=== PATIENT | female | born 1990 | race Caucasian/White ===

== ENCOUNTER 2025-02-25 19:48 | Inpatient (IN) | payer MEDICAID ==
[~2025-02-25] VITALS: Ht 157.5 cm; Wt 110.7 kg
--- NOTE | 2025-02-25 19:58 | ELECTROCARDIOGRAPH REPORT ---
[facility] Test Date: 2025-02-25 Test Time: 19:54:42 Pat Name: MATHEW FUNES Department: EMERGENCY ROOM Room: Gender: F Spa Assistant Manager: : 1990 Requested By: JUSTIN WINSTON Order Number: [id number] Reading MD: Measurements Intervals Colver Rate: 77 P: 68 SD: 166 QRS: 55 QRSD: 95 T: 12 QT: 368 QTc: 417 Interpretive Statements Sinus rhythm Borderline low voltage, extremity leads Please click the below link to view image of tracing.
--- NOTE | 2025-02-25 19:58 | Physician Documentation ---
History of Present Illness ~ Chief Complaint: Chest Pain Stated Complaint: NSTEMI Time Seen by MD: 19:50 HPI Patient presents to the emergency room for evaluation of chest pain sent from [facility]. Patient was found to have elevated troponins in his diagnosed with an NSTEMI and sent here with heparin. Nitroglycerin did resolve her symptoms and she currently has no chest pain. She presented to their emergency room with right-sided arm pain and pain into her back left chest and into her jaw. EKGs reassuring at that time. She denies any past medical history but does smoke Medication Reconciliation Allergies: Coded Allergies: No Known Allergies (Unverified , 02/25/25) Review of Systems ROS All review of systems negative except as per HPI Physical Exam Vital Signs: Heart Rate: 95, Respiratory Rate: 14, Pulse Oximetry: 98, Weight: 108.300 General Appearance General: Patient is awake, alert, oriented x4 in no acute distress and well appearing.~ Head: Normocephalic and atraumatic. Eyes: Conjunctival normal. EOMI. PERRL. ENT: Mucous membranes moist. Neck: Supple, trachea is midline. Chest: Clear to auscultation bilaterally without rales, rhonchi, or wheezes. There is no accessory muscle use or retractions. Cardiac: RRR without murmurs, gallops, or rubs. Abd: Soft, nondistended, nontender, with normoactive bowel sounds. No guarding, rebound, or rigidity. Extremities: Normal strength. Normal range of motion. No deformities or edema. No calf tenderness to palpation Progress Results/Orders Results/Orders Orders - SOLO CRUZ MD Heparin 25,000 Unit/250ml Bag (Heparin 2 (02/25/25 19:55) Heparin 10,000 Unit/Ml 1ml (Heparin 10,0 (02/25/25 19:55) Cbc/Diff (02/26/25 03:00) Cbc/Diff (02/27/25 03:00) Cbc/Diff (02/28/25 03:00) Cbc/Diff (03/01/25 03:00) Cbc/Diff (03/02/25 03:00) Chest,Single View (02/25/25 19:54) Saline Lock (02/25/25 19:54) Monitor (02/25/25 19:54) Oxygen (02/25/25 19:54) Hs Troponin I W Calculations (02/25/25 22:54) Page Hospitalist (02/25/25 19:58) Fill Out Med Reconciliation (02/25/25 19:58) PTT (02/26/25 02:21) PTT (02/26/25 03:00) Completed Orders - SOLO CRUZ MD Pt Inr (02/25/25 19:54) PTT (02/25/25 19:54) Cbc/Diff (02/25/25 19:54) MG (02/25/25 19:54) Electrocardiogram (02/25/25 19:54) PBNP (02/25/25 19:54) Chest,Single View (02/25/25 19:54) BMP (02/25/25 19:54) Hs Troponin I W Calculations (02/25/25 19:54) Hgb A1c (02/25/25 20:01) Message To Nursing (02/25/25 21:50) Medications Received in ER Medications (Trade) Dose Ordered Sig/Lindsay Route PRN Reason Start Time Stop Time Status Last Admin Dose Admin Heparin Sodium/ Dextrose 250 ml @ 12 mls/hr [id number] PRN IV TO MAINTAIN PTT WITHIN RANGE 02/25/25 19:55 02/25/25 20:18 10 MLS/HR (heparin 10,000 unit/ml 1ml inj) bolus for correct... PRN PRN IV per protocol-CARDIAC 02/25/25 19:55 02/25/25 21:03 4,000 UNITS Non-Formulary Medication 1 each ONCE ONCE IV 02/25/25 21:50 02/25/25 21:53 DC 02/25/25 22:22 1 EACH Vital Signs 02/25/25 02/25/25 02/25/25 02/25/25 19:50 20:03 22:31 22:32 Temp 97.9 97.9 97.9 Pulse 95 82 84 Resp 14 16 18 20 B/P (MAP) 121/73 121/73 (89) 121/56 (77) Pulse Ox 98 98 100 Laboratory Tests Test 02/25/25 20:01 02/25/25 22:24 White Blood Count 14.0 H Red Blood Count 5.01 Hemoglobin 14.0 Hematocrit 42.2 Mean Corpuscular Volume 84.1 Mean Corpuscular Hemoglobin 27.9 Mean Corpuscular Hemoglobin Concent 33.2 Red Cell Distribution Width 14.8 H Platelet Count 348 Mean Platelet Volume 7.8 Neutrophils (%) (Auto) 77.0 H Lymphocytes (%) (Auto) 19.8 L Monocytes (%) (Auto) 2.6 Eosinophils (%) (Auto) 0.3 Basophils (%) (Auto) 0.3 Neutrophils # (Auto) 10.8 H Lymphocytes # (Auto) 2.8 Monocytes # (Auto) 0.4 Eosinophils # (Auto) 0.0 Basophils # (Auto) 0.0 CBC Comment Prothrombin Time 10.3 INR International Normalized Ratio 1.0 Activated Partial Thromboplast Time 38 H Coagulation Comments Sodium Level 142 Potassium Level 4.3 Chloride Level 108 H Carbon Dioxide Level 25.6 Anion Gap 8 Blood Urea Nitrogen 12 Creatinine 0.67 Estimated GFR/1.73 m2 > 90 BUN/Creatinine Ratio 17.9 Glucose Level 103 Hemoglobin A1c 5.6 Calcium Level 8.6 Magnesium Level 2.1 Troponin I High Sensitivity 56136 *H Troponin I High Sens Percent Delta Troponin I Hi Sens Absolute Change Pro-B-Type Natriuretic Peptide 48 Albumin 3.6 Chemistry Comments EKG/XRAY/CT/US/VASC/MRI EKG : Additional Comment EKG interpreted by myself shows time of 1953, rate 77, sinus rhythm, normal axis, no ST changes Medical Decision Making Findings Patient presents to the emergency room as a transfer for NSTEMI as per HPI. We will continue heparin. Patient is currently chest pain-free with a reassuring EKG. We will admit for further investigation and cardiology consult. Differential Dx:Considerations: Include: angina, aortic dissection, chest wall pain, cholelithiasis, CHF, costochondritis, esophageal reflux/spasm, gastritis, herpes zoster, myocardial infarction, pericarditis, pleuritis, pancreatitis, pneumonia, pneumothorax, pulmonary embolus, other Departure Admitted to Inpatient Unit: yes, to hospitalist Impression: Primary Impression: Non-ST elevation PR (NSTEMI) Condition: Guarded Referrals: NO PRIMARY CARE PROVIDER (PCP) Critical Care Note Total Time (mins): 30 Critical Care Note The very real possibility of a deterioration of this patient's condition required the highest level of my preparedness for sudden, emergent intervention. I provided critical care services, which included medication orders, frequent reevaluations of the patient's condition and response to treatment, ordering and reviewing test results, and discussing the case with various consultants. Excludes time spent performing separately billable procedures. The critical care time associated with the care of the patient was 30 minutes not counting procedures. Signature Scribe Signature: No scribe Attestation: The note accurately reflects work and decisions made by me.Solo Cruz MD 02/25/25 22:36 SOLO CRUZ MD Feb 25, 2025 19:58
[2025-02-25 20:15] LABS: MEAN PLATELET VOLUME 7.8 FL (7.4-10.4); RED CELL DISTRIBUTION WIDTH 14.8 % (11.5-14.5)
[2025-02-25] MEDS: heparin 10,000 units/1 ML INJ IV PRN (20:18)
[2025-02-25] MEDS: heparin 25,000 UNIT/250ml bag 250 ML IV PRN (20:18)
[2025-02-25 20:22] LABS: APTT 38 SECONDS (22-32); INR 1.0 INR
--- NOTE | 2025-02-25 20:26 | RADIOLOGY REPORT ---
CHEST RADIOGRAPH Indication: CP Technique: Single frontal view of the chest was obtained Comparison: None FINDINGS: Lines and Tubes: None Lungs: No focal consolidation. Pleura: No effusion. No pneumothorax. Cardiomediastinal contours: Unremarkable Bones: No acute osseous abnormality. IMPRESSION: No acute cardiopulmonary disease.
[2025-02-25 20:33] LABS: CREATININE 0.67 MG/DL (0.40-0.90); PRO BRAIN NATRIURETIC PEPTIDE 48 PG/ML (0-125); TOTAL CARBON DIOXIDE 25.6 MMOL/L (24-32); eCRCL 94 ML/MIN; eGFR > 90 ML/MIN
[2025-02-25] MEDS ORDERED: potassium Cl 20 mEq SR tablet PO PRN ×2 (21:25)
[2025-02-25] MEDS ORDERED: mag hydrox/Alum hydrox/simeth 30ml oral suspension PO PRN (21:25)
[2025-02-25] MEDS ORDERED: magnesium sulf-water 4G/100mL 100 ML IV PRN (21:25)
[2025-02-25] MEDS ORDERED: ondansetron/PF 4mg/2ml inj IV PRN (21:25)
[2025-02-25] MEDS ORDERED: HYDROcodone/acetaminophen 10/325mg tab PO PRN (21:25)
[2025-02-25] MEDS ORDERED: magnesium hydroxide 30ml (MOM) UD suspension PO PRN (21:25)
[2025-02-25] MEDS ORDERED: magnesium Cl slow-release 64mg tablet PO PRN (21:25)
[2025-02-25] MEDS ORDERED: HYDROcodone/acetaminophen 5mg/325mg tablet PO PRN (21:25)
[2025-02-25] MEDS ORDERED: potassium Cl 40MEQ/1/2NS 520ml 520 ML IV PRN (21:25)
[2025-02-25] MEDS ORDERED: magnesium sulf-water 2g/50mL 50 ML IV PRN (21:25)
--- NOTE | 2025-02-25 21:34 | HISTORY AND PHYSICAL-Residence ---
History & Physical Providers to Resident Creating Document: ANALY DELAROSA RES ~ History of Present Illness Reason for Admit\Complaint: jaw, arm and back pain History of Present Illness 34-year-old female is a transfer from [facility] . She went to the hospital with chief complaints of pain in her left arm , jaw and back which started this afternoon at around 1:30 p.m. patient was involved in some recreational activities when the pain started all of a sudden, sharp, constant,rates it as as 10 on 10 in intensity. She observed for a few minutes, did not find any relief so immediately went to the hospital, where she was given aspirin and nitroglycerin which relieved her pain. Patient was then transferred to [facility] for further evaluation. At the time of examination, patient reported no pain nor shortness of breath. Patient says that this is the 1st time that she is experienced this kind of pain, never had similar symptoms in the past. Patient denies any complaints of chest pain, shortness of breath, palpitations, headache, double vision. Patient has no known history of heart disease. Allergies: Coded Allergies: No Known Allergies (Unverified , 02/25/25) Past Medical History Past Medical History Had a miscarriage in November this year. No other significant past medical history Past Surgical History Surgical History Comment No significant surgical history. Past Social History Social History Comment Patient lives at home. Works in housekeeping. Patient started smoking when she was 16 years old smoked for 4 years 1 pack per week. Was clean for several years in between and again started smoking in November this year 4 cigarettes per day. Started drinking alcohol in 7th grade, on and off until age 24, when she stopped drinking. She again started to drink in 2023 2 bottles of vodka per day, stopped last month. No illicit drug use. Patient independent with activities of daily living ROS ROS Constitutional: Reports: No headache, No chills, fever, malaise Eyes: Reports: No redness, tearing ENT: Reports: no symptoms reported Respiratory: Reports: Reports no cough, shortness of breath, wheezing Cardiovascular: Reports: Reports no chest pain Gastrointestinal: Reports: Reports no nausea , vomiting Genitourinary: Reports: No symptoms reported Female Genitalia: Reports: No symptoms reported Neurological: Reports: No symptoms reported Musculoskeletal: Reports: no symptoms reported Integumentary: Reports: no symptoms reported Allergic/Immunologic: Reports: no symptoms reported Hematologic/Lymphatic: Reports: no symptoms reported Psychiatric: Reports: no symptoms reported Exam Vitals: Vital Signs Date Time Temp Pulse Resp B/P (MAP) Pulse Ox O2 Delivery O2 Flow Rate FiO2 02/25/25 20:03 97.9 82 16 121/73 (89) 98 General: General: Awake and Alert, no acute distress. Moderately obese female HEENT: Conjunctiva pink, Mucus Membranes moist. Resp: Normal breath sounds. Heart: Regular Rate and rhythm, normal S1 and S2 without murmur, rub or gallop. Abdomen: Soft and non tender no organomegaly Extremities: no edema , peripheral pulses well felt BILINGUAL SALES CONSULTANT: Conscious, oriented x4. No cranial nerve deficits. No upper or lower extremity motor or sensory deficits. Psych: Mood and affect appropriate Skin: Warm and Dry. Diagnostic Data Last Recorded Lab Results: 02/25/25200002/25/252000 Diagnostic Data: Laboratory Tests Test 02/25/25 20:01 Prothrombin Time 10.3 SECONDS (9.0-12.0) INR International Normalized Ratio 1.0 INR Activated Partial Thromboplast Time 38 SECONDS (22-32) H Coagulation Comments Advance Care Planning Advanced Care plannin - 30 Minutes (Full code) Additional Plan [id number] female chief complaint of pain in her jaw and left arm and back since this afternoon. Possible NSTEMI PE unlikely wells score 0 heart Score-4 Patient currently not complaining of any pain Vitals stable Increased troponin- 59422 EKG- no ST elevation, depression, no acute changes present Chest x-ray-no acute cardiopulmonary disease CTA chest done at [facility] today-no PE. no aneurysm or dissection, heart not enlarged. No pericardial effusion. Echo ordered. Follow-up Patient currently on heparin drip. Started patient on aspirin 81 mg daily, atorvastatin 40 mg daily. Cardiology consulted, awaiting recommendations. Patient on NPO code Status: full code Line/tube: PIV DVT prophylaxis: Heparin Nutrition: NPO PT: Yes Analy Delarosa PGY-1 Patient seen and case discussed with resident. I agree with the assessment and plan above with no changes. Alexandra Granados MD Critical Care Date of Service: Feb 25, 2025 Billing Provider: ALEXANDRA GRANADOS MD,ANALY, RES Feb 25, 2025:34 ALEXANDRA GRANADOS MD Feb 26, 2025 19:33
[2025-02-25] MEDS: MESSAGE TO NURSING IV ONE (22:22)
[2025-02-25] MEDS ORDERED: regadenoson 0.4mg/5ml syringe IV PRN (22:35)
[2025-02-25] MEDS ORDERED: aminophylline 250mg/10ml inj. IV PRN (22:35)
[2025-02-25] MEDS ORDERED: metoprolol tartrate 1mg/ml inj IV PRN (22:35)
[2025-02-25 23:12] LABS: LEUKOCYTE ESTERASE ,URINE NEGATIVE (Neg); NITRITES, URINE NEGATIVE (Neg); OCCULT BLOOD,URINE NEGATIVE (Neg)
[2025-02-25] MEDS ORDERED: PNV1TABL75 PO (23:12)
[2025-02-25] MEDS ORDERED: VITD400T PO (23:12)
[2025-02-25 23:18] LABS: UA COLLECTION TYPE CLN CATCH MIDSTREAM
[2025-02-25 23:30] VITALS: RESP 18; O2SAT 97
[2025-02-26] VITALS (21 sets, daily range): BP systolic 98–134; BP diastolic 47–84; PULSE 63–90; RESP 13–23; TEMP 96.7–98.7; O2SAT 97–100
[2025-02-26 03:48] LABS: APTT 44 SECONDS (22-32)
[2025-02-26 03:49] LABS: MEAN PLATELET VOLUME 7.6 FL (7.4-10.4); RED CELL DISTRIBUTION WIDTH 14.7 % (11.5-14.5)
[2025-02-26 04:01] LABS: CHOL/HDL RATIO 4.6 (0.00-4.99); CREATININE 0.62 MG/DL (0.40-0.90); LDL CHOLESTEROL 123 MG/DL (50-100); TOTAL CARBON DIOXIDE 25.5 MMOL/L (24-32); eCRCL 89 ML/MIN; eGFR > 90 ML/MIN
[2025-02-26] MEDS: MESSAGE TO NURSING IV ONE ×3 (04:30→12:54)
[2025-02-26] MEDS: docusate sod 100mg capsule PO SCH (07:28)
[2025-02-26] MEDS: aspirin 81mg, enteric-coated 1 TAB TABLET.DR PO SCH (07:28)
[2025-02-26] MEDS ORDERED: LIDOcaine 1% (10mg/ml) 2ml vial ONE (07:42)
[2025-02-26] MEDS ORDERED: midazolam 1 mg/ML 2ml injection ONE (07:42)
[2025-02-26] MEDS ORDERED: fentaNYL/PF 50MCG/1 ML 2ML syringe ONE (07:42)
[2025-02-26] MEDS ORDERED: heparin 1,000unit/ml 10ml vial 10 ML ONE (07:42)
[2025-02-26] MEDS ORDERED: verapamil 2.5 mg/ml inj IV ONE (07:42)
[2025-02-26] MEDS ORDERED: nitroGLYCERIN 500mcg/5mL D5W 5 ML IV ONE (07:43)
[2025-02-26] MEDS: K and/or MAG REPLACEMENT MC SCH (08:00)
[2025-02-26] MEDS ORDERED: heparin, porcine 5000 units/ml vial SQ SCH (08:00)
[2025-02-26] MEDS ORDERED: iohexol 350 MG/ML 50ML vial IV ONE (08:13)
--- NOTE | 2025-02-26 08:35 | CONSULTATION REPORT ---
Cardiac Consultation Report Providers to CC CC: DAMIAN SOUZA MD ~ Progress Note: 34yo woman with tobacco use admitted with CP x 1 day, found to have NSTEMI. Pt reports she had a miscarriage ~ 3 months ago, restarted smoking after that. Was playing some activities/games yesterday during which she started to have pains. She reports left arm pains/numbness associated with jaw pains that radiated to her back. She rested for a little while, the pains improved, but then returned when she tried to resume the games so she went into the ER at [place]. There, had workup revealing a positive troponin, underwent CXR, CTA which were negative and transferred for further care. She denies any recent illnesses, fevers/chills, diarrhea. Subjective Subjective Since, reports LUE/jaw pains have nearly resolved. Denies any SOB, LE edema, syncope, dizziness/LH. Objective Vitals Vital Signs Date Time Temp Pulse Resp B/P (MAP) Pulse Ox O2 Delivery O2 Flow Rate FiO2 02/26/25 07:30 20 Room Air 02/26/25 06:56 97.3 70 99/48 (65) 100 Lab Results: 02/26/25 0337 02/26/25 0250 Objective GENERAL: Awake, alert, NAD CV: Reg rhythm, normal rate. No murmurs LUNGS: CTAB GI: +BS, soft, non-tender EXT: 2+ radial pulses, no edema PSYCH: cooperative Coagulation Studies Laboratory Tests Test 02/25/25 20:01 02/26/25 02:50 Prothrombin Time 10.3 SECONDS (9.0-12.0) INR International Normalized Ratio 1.0 INR Activated Partial Thromboplast Time 44 SECONDS (22-32) H Coagulation Comments Problem\Assessment\Plan Problems/Diagnosis: (1) Non-ST elevation CO (NSTEMI) Assessment & Plan: Patient with exertional LUE/Jaw pains and found to have elevated troponins(~26k). Risk factors of tobacco use. Did have recent miscarriage, ~ 3 months prior. EKG without acute changes. Had extensive discussion with patient regarding possible etiologies and discussed SCAD vs Takatsubo's. She appears euvolemic on exam, no SOB, no EKG changes to suggest takatsubo's. No murmurs appreciated on exam. --Will proceed with [facility] for definitive diagnosis --Pending Echo --Cont ASA 81mg QD --Cont Atorva 40 --Cont BOSTONx JODY SOUZA MD Feb 26, 2025 08:35
--- NOTE | 2025-02-26 09:08 | CARDIAC CATH REPORT ---
Cardiac Cath Report Providers to CC CC: DAMIAN SOUZA MD Procedure Comments: 1. Left Heart Catheterization 2. Selective Coronary Angiography 3. Right Radial Artery Access Brief History/Indications: 34yo woman with tobacco use admitted with CP x 1 day, found to have NSTEMI. Techniques: After informed consent was obtained, the patient was brought to the cardiac catheterization laboratory and prepped and draped in usual sterile fashion for left heart catheterization and other procedures mentioned above. The right wrist was anesthetized with 1% Lidocaine and the right radial artery accessed via the Seldinger technique after which a 6Fr sheath was placed. Through this a TIG was used to engage the left ventricle, the left coronary artery, and the right coronary artery. At the conclusion of the case the sheath was removed and hemostasis obtained with a VascBand. Findings Findings: HEMODYNAMICS: LV: 108/- mmHg LVEDP: 4 mmHg Ao: 102/71, MAP 86 mmHg CORONARY ARTERIES: Rt Dominant LMCA: Luminal Irregularities LAD: Long area of diffuse narrowing of the mid-distal LAD, appears to be SCAD. Dx: Luminal Irregularities LCx: Luminal Irregularities OM1: Luminal Irregularities OM2: Luminal Irregularities RCA: Luminal Irregularities PDA: Luminal Irregularities PL: Luminal Irregularities Results Results: 1. 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 RRA Access, closed with VascBand RECOMMENDATIONS: 1. Recommend uptitration of max-tolerated GDMT 2. Given appearance of SCAD, no hemodynamic compromise, normal LVEDP, resolution of CP and no persistent ST changes, decided not to intervene. 3. Will consider repeat imaging to re-assess at a later time frame JODY SOUZA MD Feb 26, 2025 09:08
[2025-02-26] MEDS: metoprolol succinate 25mg (24-HOUR) SR. Tablet PO SCH (11:49)
--- NOTE | 2025-02-26 14:05 | PROGRESS NOTE ---
Daily Progress Note Providers to CC ~ Antibiotic Timeout Antibiotic Ordered?: No Subjective No acute events overnight. Patient examined at bedside. No new complaints, not in acute distress. Patient denies chest pain, sob, palpitations, abdominal pain, n/v/d. Vss, trops from 26,000 to 22,000. Tele sinus in 60s. Continued on heparin drip. Route [facility] Dr. Wilmer Darby consulted, s/p left heart catheterization with findings of spontaneous coronary artery dissection with recommendation for medical management is there is no hemodynamic compromise and no persistent ST changes. Objective Vital Signs Date Time Temp Pulse Resp B/P (MAP) Pulse Ox O2 Delivery O2 Flow Rate FiO2 02/26/25 11:53 97.4 74 18 117/77 (90) 97 Room Air Result Diagram: 02/26/25 0337 02/26/25 0250 Physical Exam General: A&Ox 3, NAD HEENT: Normocephalic, PERRLA Neck: Supple, trachea midline, no JVD Chest: Clear to auscultation bilaterally Cardiovascular: RRR, S1&S2 GI: Soft and nontender Extremities: No cyanosis/clubbing/or edema CUSTOMER ENGINEER: CN II-XII intact, no focal deficits Musculoskeletal: No paraspinal muscle tenderness, no muscle spasm Skin: Warm and intact Coagulation Studies Laboratory Tests Test 02/25/25 20:01 02/26/25 02:50 02/26/25 11:08 Prothrombin Time 10.3 SECONDS (9.0-12.0) INR International Normalized Ratio 1.0 INR Activated Partial Thromboplast Time 44 SECONDS (22-32) H APTT (Heparin Protocol) 33 SECONDS (45-60) L Coagulation Comments Problem\Assessment\Plan 34-year-old female chief complaint of pain in her jaw and left arm and back since this afternoon. Spontaneous coronary artery dissection NSTEMI PE- ruled out troponin- 13487, 33188, 29007, EKG no ST elevation, depression, CXR no acute cardiopulmonary disease [facility]A chest done at [facility] today-no PE. no aneurysm or dissection, heart not enlarged. No pericardial effusion. 02/26: continued on heparin drip, Dr. Wilmer Darby consulted, scheduled for angiogram, Tele sinus in 60s. s/p left heart catheterization with findings of spontaneous coronary artery dissection with recommendation for medical management is there is no hemodynamic compromise and no persistent ST changes. Optimize GDMT as tolerated, aspirin. Hep drip to be discontinued tonight. TTE hypokinesis of the apex bright. LVEF is 65-70% RVSP 20mmHg. Date of Service: Feb 26, 2025 Billing Provider: JD OSULLIVAN Common Visit Codes: 95425-[id number] INP/OBS CARE(HIGH) JD OSULLIVAN Feb 26, 2025 14:05
--- NOTE | 2025-02-26 19:31 | CARDIOLOGY REPORT ---
APPROVED REPORT EXAM: Comprehensive 2D, Doppler, and color-flow Echocardiogram. Patient Location: 301 Blood Pressure: 113/73 mmHg Heart Rate: 69 bpm Indications NSTEMI Chest Pain Troponin: 96565, 36350, 38067 S/P Angiogram w/o stent LAWYER PROBATE: Jakub Darby MD No Previous ECHO 2D Dimensions LA Diam 3.0 cm IVSd 0.8 (0.7-1.1cm) LVDd 5.0 cm PWd 1.1 (0.7-1.1cm) IVSs 1.5 (0.8-1.2cm) LVDs 2.8 (2.5-4.0cm) PWs 1.5 (0.8-1.2cm) LVOT Diameter 1.87 (1.8-2.4cm) LVEF(%) 74.7 (>50%) Ao Asc Diam. 2.52 cm IVC 15.51 mm FS (%) 43.7 % SV 88.2 ml M-Mode Dimensions Left Atrium(MM) 2.99 (2.5-4.0cm) Aortic Root 2.56 (2.2-3.7cm) Aortic Cusp Exc 1.84 (1.5-2.0cm) MV EPSS 0.6 (<0.5cm) Aortic Valve AoV Peak Sunday. 156.8 cm/s AoV VTI 29.3 cm AO Peak GR. 9.8 mmHg AO Mean GR. 5 mmHg LVOT VTI 24.42 cm LVOT Peak Sunday. 123.1 cm/s JEWELL (VMAX) 2.16 cm2 JEWELL (VTI) 2.30 cm2 Mitral Valve MV E Velocity 93.4 cm/s MV DECEL TIME 183 ms MV A Velocity 57.3 cm/s MV PHT 67 ms E/A Ratio 1.6 MVA (PHT) 3.26 cm2 TDI E/Medial E' 7.8 Pulmonary Valve PV Peak Velocity 111.8 cm/s PV Peak Grad. 5 mmHg Tricuspid Valve TR P. Velocity 157 cm/s RAP ESTIMATE 10 mmHg TR Peak Gr. 10 mmHg RVSP 20 mmHg LEFT VENTRICLE Normal LV size and wall thickness. Overall systolic function is normal. There is hypokinesis of the apex/apical bright. LVEF is 65-70%. RIGHT VENTRICLE RV is normal size and function. ATRIA The left atrium size is normal. AORTIC VALVE Trileaflet AV appears mildly sclerotic without stenosis. No insufficiency. MITRAL VALVE Mild mitral annular calcification without stenosis. Trace regurgitation. TRICUSPID VALVE The tricuspid valve is normal in structure with trace regurgitation. PULMONIC VALVE The pulmonary valve is normal in structure with physiologic insufficiency. GREAT VESSELS The aortic root is normal in size. The ascending aorta is normal in size. The IVC is normal in size and collapses >50% with inspiration. PERICARDIUM Normal pericardium. No effusion. Other Information Study Quality: Adequate Conclusion Normal LV size and wall thickness. Overall systolic function is normal. There is hypokinesis of the apex/apical bright. LVEF is 65-70%. RV is normal size and function. The left atrium size is normal. Trileaflet AV appears mildly sclerotic without stenosis. No insufficiency. Mild mitral annular calcification without stenosis. Trace regurgitation. The tricuspid valve is normal in structure with trace regurgitation. Normal pericardium. No effusion.
[2025-02-27 02:00] VITALS: BP 91/59; PULSE 64; RESP 19; TEMP 97; O2SAT 95
[2025-02-27 06:20] LABS: MEAN PLATELET VOLUME 7.7 FL (7.4-10.4); RED CELL DISTRIBUTION WIDTH 14.6 % (11.5-14.5)
[2025-02-27 06:33] LABS: CREATININE 0.71 MG/DL (0.40-0.90); TOTAL CARBON DIOXIDE 27.1 MMOL/L (24-32); eCRCL 89 ML/MIN; eGFR > 90 ML/MIN
[2025-02-27 06:57] VITALS: BP 114/50; PULSE 63; RESP 19; TEMP 97.9; O2SAT 99
[2025-02-27] MEDS: metoprolol succinate 25mg (24-HOUR) SR. Tablet PO SCH (07:05)
[2025-02-27] MEDS ORDERED: ASPI-1071 PO (07:42)
[2025-02-27] MEDS ORDERED: METO-395 PO (07:42)
[2025-02-27 08:39] VITALS: RESP 19; O2SAT 99
--- NOTE | 2025-02-27 11:32 | DISCHARGE SUMMARY ---
Discharge Summary Providers to CC ~ Discharge Summary Admission Diagnosis: NSTEMI Hospital Course DATE OF ADMISSION: 02/25/25 DATE OF DISCHARGE: 02/27/25 Discharge Diagnosis\\Comment: Spontaneous coronary artery dissection NSTEMI PE- ruled out Operations\\Procedures: Left heart catheterization Consultants: Ski Guide Zackary Mendoza Complications: None Condition on DC: Stable New Medications: Atorvastatin Calcium* (Lipitor*) 40 Mg Tablet 1 TAB PO HS for 30 Days, #30 TAB Metoprolol Succinate (Metoprolol Succinate) 25 Mg Tab.sr.24h 25 MG PO DAILY for 90 Days, #90 TAB.SR Aspirin (Ecotrin*) 81 Mg Tablet.dr 1 TAB PO DAILY for 90 Days, #90 TAB.SR Continued Medications: Cholecalciferol (Vitamin D3) (Vitamin D) 10 Mcg (400 Unit) Tablet 1 TAB PO DAILY for 30 Days, #30 TAB 0 Refills Pnv No.122/Iron/Folic Acid ( Multi Tablet) 27 Mg Iron-800 Mcg Tablet 1 TAB PO DAILY for 30 Days, #30 TAB 0 Refills Discharge Summary: History of Present Illness From H&P: "34-year-old female is a transfer from [facility]. She went to the hospital with chief complaints of pain in her left arm , jaw and back which started this afternoon at around 1:30 p.m. patient was involved in some recreational activities when the pain started all of a sudden, sharp, constant,rates it as as 10 on 10 in intensity. She observed for a few minutes, did not find any relief so immediately went to the hospital, where she was given aspirin and nitroglycerin which relieved her pain. Patient was then transferred to [facility] for further evaluation. At the time of examination, patient reported no pain nor shortness of breath. Patient says that this is the 1st time that she is experienced this kind of pain, never had similar symptoms in the past. Patient denies any complaints of chest pain, shortness of breath, palpitations, headache, double vision. Patient has no known history of heart disease." Hospital Course Diagnostic findings were significant for profoundly elevated troponin series in 26,000s. EKG revealed no ST elevation/depression. Chest x-ray was unremarkable. CTA chest completed at transferring facility showed negative pulmonary embolism, aneurysm, or dissection. TTE showed LVEF is 65-70% RVSP 20mmHg without significant valvular heart disease. Patient was started on heparin drip, bbx, aspirin, statin, prn nitroglycerin. Case was consulted with on-call umbrella mender Dr. Darby and the patient underwent left heart catheterization with findings notable for spontaneous coronary artery dissection with recommendation for medical management with GDMT as tolerated as there was no hemodynamic compromise and no persistent ST changes. Patient did not experience further complications throughout the entire hospital stay and remained clinically and hemodynamically stable. Patient was seen and examined on the day of discharge. On day of disch arge, vss and labs unremarakble. All labs, diagnostic workups, discharge plan discussed with patient in details during visit before discharge. All questions and concerns answered to the best of my professional knowledge.Patient is cleared for discharge from cardiology standpoint by Dr. Darby. Patient is to be discharged to home to self and to follow-up with PCP and Dr. Perez within 2 weeks. Physical Exam General: Generalized weakness, A&Ox 3, NAD HEENT: Normocephalic, PERRLA Neck: Supple, trachea midline, no JVD Chest: Clear to auscultation bilaterally Cardiovascular: RRR, S1&S2 GI: Soft and nontender Extremities: No cyanosis/clubbing/or edema ENVELOPE MACHINE OPERATOR: CN II-XII intact, no focal deficits Musculoskeletal: No paraspinal muscle tenderness, no muscle spasm Skin: Warm and intact *Problems/Diagnosis: (1) Non-ST elevation CO (NSTEMI) Status: Acute Total Time Spent on D/C: > 30 Minutes Date of Service: Feb 27, 2025 Billing Provider: JD OSULLIVAN Common Visit Codes: 28602-KMD/OBS DISCH DAY >30min JD OSULLIVAN Feb 27, 2025 11:32
[2025-02-27] MEDS ORDERED: ATOR40TA PO (11:33)
[2025-02-28] MEDS ORDERED: metoprolol succinate 25mg (24-HOUR) SR. Tablet PO SCH (08:00)
== END 2025-02-27 13:30 | disposition home or self-care (01) | DRG 190 ==
LOC: ER 19:49 → PCU 3S 20:46
PROVIDERS: ADMIT Internal Medicine Pulmonary Disease; ATTEND Nurse Practitioner Family
PROC: 4A023N7 Measurement of Cardiac Sampling and Pressure, Left Heart, Percutaneous Approach (ICD-10-PCS; principal; 2025-02-26)
PROC: B2111ZZ Fluoroscopy of Multiple Coronary Arteries using Low Osmolar Contrast (ICD-10-PCS; 2025-02-26)
DX: I21.4 Non-ST elevation (NSTEMI) myocardial infarction (principal); I25.42 Coronary artery dissection; Z79.82 Long term (current) use of aspirin
CPT/HCPCS: 36415; 71045; 80048; 80053; 80061; 81003; 83036; 83735; 83880; 84484; 85025; 85610; 85730; 87081; 93005; 93306; 93458; 96365; 96375; 99152; 99291; C1894; G0378; J1644; J2003; J2250; J3010; J3490; J7030; J7070; Q9967